=== PATIENT | male | born 2000 | race Two or more races ===

== ENCOUNTER 2023-08-08 14:42 | Emergency (ER) | payer SELFPAY ==
[~2023-08-08] VITALS: Ht 172.7 cm; Wt 71.1 kg
[2023-08-08 17:48] LABS: Basophils # (auto) 0 10 ^3/uL (0-0.2); Basophils % (auto) 0.3 % (0.0-2.0); Eosinophils # (auto) 0.1 10 ^3/uL (0-0.8); Eosinophils % (auto) 0.7 % (0.0-7.0); Hemoglobin 15.3 g/dL (13.5-17.5); Lymphocytes # (auto) 2.5 10 ^3/uL (0.4-5.4); Lymphocytes % (auto) 23.4 % (10.0-50.0); Mean Corpuscular Hgb Conc. 33.2 g/dL (32.0-36.0); Mean Corpuscular Volume 90.5 fL (80.0-100.0); Monocytes # (auto) 0.6 10 ^3/uL (0-1.3); Neutrophils # (auto) 7.4 10 ^3/uL (1.6-8.6); Neutrophils % (auto) 69.6 % (37.0-80.0); Red Blood Cells 5.08 10^6/uL (4.5-5.90); Red Cell Distribution Width 14.2 % (11.8-14.3); White Blood Cell 10.7 10^3/uL (4.4-10.8)
[2023-08-08 17:51] LABS: Alanine Aminotransferase 19 U/L (7-40); Albumin 4.5 g/dL (3.2-4.8); Alkaline Phosphatase 66 U/L (46-116); Anion Gap 3 (5-15); Aspartate Aminotransferase 15 U/L (13-40); BUN/Creatinine Ratio 10.4 (10.0-20.0); Blood Urea Nitrogen 11 mg/dL (9-23); Calcium 9.9 mg/dL (8.7-10.4); Carbon Dioxide 28 mmol/L (20-30); Chloride 106 mmol/L (98-107); Glucose 101 mg/dL (74-106); Lipase 33 U/L (12-53); Potassium 4.4 mmol/L (3.5-5.1); Sodium 137 mmol/L (136-145)
[2023-08-08 17:52] LABS: Bilirubin, Total 0.4 mg/dL (0.2-1.0); Total Protein 7.2 g/dL (5.7-8.2)
[2023-08-08] MEDS ORDERED: HYDR5CRE3 PR (20:41)
[2023-08-08] MEDS ORDERED: ZOFR4T PO (20:41)
[2023-08-08] MEDS ORDERED: OMEP-448 PO (20:41)
[2023-08-08] MEDS ORDERED: DOCU-80 PO (20:41)
[2023-08-08 21:04] VITALS: BP 115/80; PULSE 60; RESP 16; TEMP 98; O2SAT 98
== END 2023-08-08 21:04 | disposition home or self-care (01) ==
LOC: ER 14:42
DX: K27.9 Peptic ulcer, site unspecified, unspecified as acute or chronic, without hemorrhage or perforation (principal); K64.9 Unspecified hemorrhoids; R07.89 Other chest pain
CPT/HCPCS: 36415; 71045; 74176; 80053; 83605; 83690; 85025; 93005